=== PATIENT | female | born 1995 | race Caucasian/White ===

== ENCOUNTER 2016-09-28 07:04 | Outpatient (CLI) | payer OTHER ==
[2016-09-28 07:47] LABS: APPEARANCE,URINE CLOUDY; BILIRUBIN,URINE NEGATIVE (NEGATIVE); GLUCOSE, URINE NEGATIVE (NEGATIVE); KETONES,URINE NEGATIVE (NEGATIVE); LEUKOCYTE ESTERASE,URINE LARGE (NEGATIVE); NITRITE,URINE POSITIVE (NEGATIVE); PROTEIN,URINE 100 mg/dL (NEGATIVE); URINE SPECIFIC GRAVITY 1.019; UROBILINOGEN,URINE NEGATIVE mg/dL (<2.0)
--- NOTE | 2016-09-28 08:00 | L&D Flow Sheet ---
LD Flowsheet Datetime Report Generated by CPN: 09/28/2016 08:00 Datetime: 09/28/2016 07:35 Pain Pain Scale: 3 (Gale Hobbs RN) Pain Presence: Constant (Gale Hobbs RN) Pain Type: Dull (Gale Hobbs RN) Pain Location: Back (Gale Hobbs RN) Pain Goal: 2 (YISSEL Alejo Pain Relief Measures: Comfort Measures (Annotations: heat pack applied to lower back ) (Gale Anjel, RN) Vaginal Exam Vaginal Bleeding: None (Gale Anjel, RN) Maternal Assessment Level of Consciousness: Fully Conscious (Gale Hobbs, RN) DTR's/Clonus: DTRs 1+; No Clonus (Gale Anjel, RN) Headache: Denies (Gale Anjel, RN) Nausea/Vomiting: Denies (Gale Hobbs, RN) Teaching Instructional Method: Verbal; Patient Instructed; Verbalized Understanding (Gale Hobbs, RN) Plan of Care: Plan of Care Discussed (Gale Hobbs, RN) Unit Routine: [place] to Room; Call Glass; Bed; Unit Personnel; Handwashing; Monitoring (Gale Hobbs, RN) Communication LaborFlag: Antepartum (QS system process) Datetime: 09/28/2016 07:30 NBP Sys/Rosario/Mean (mmHg): 134 (QS system process) : 59 (QS system process) : 85 (QS system process) Pulse: 100 (QS system process) Communication LaborFlag: Antepartum (QS system process) Datetime: 09/28/2016 07:26 Vital Signs Stage of : Antepartum (Gale Anjel, RN)
[2016-09-28 08:02] LABS: URINE BARBITURATES SCREEN NEGATIVE; URINE METHADONE SCREEN NEGATIVE; URINE OPIATES LOW NEGATIVE; URINE PHENCYCLIDINE SCREEN NEGATIVE
[2016-09-28] MEDS ORDERED: CEFTRIAXONE 1 GM/D5W RTU 50 ML IV ONE (08:15)
[2016-09-28] MEDS ORDERED: CEFTRIAXONE 1 GM/D5W RTU 1 GM/50 ML RTUPB IV ONE (08:21)
[2016-09-28] MEDS: RINGERS SOLUTION,LACTATED 1,000 ML IV PRN ×2 (08:23→08:58)
--- NOTE | 2016-09-28 08:50 | Non Stress Test Report ---
Non Stress Test Datetime Report Generated by CPN: 09/28/2016 08:50 DEMOGRAPHIC Test Number: 1 EGA NST: 35.6 INDICATION Indication for Study: Ordered by Provider; Other Indication for Study (NST) Other: Back pain MONITORING Monitor Explained: Monitor Explained; Test Explained; Patient Verbalized Understanding Time on Monitor: 09/28/2016 08:16 Time off Monitor: 09/28/2016 08:40 NST Duration: 24 NST INTERVENTIONS NST Interventions: PO Hydration; IV Fluids; Reposition Patient Physician Notified NST: Dr Sultana BABY A: [id number] BABY A Movement : Present Contraction Frequency : None FHR Baseline : 135 Accelerations : 15X15 Decelerations : None Variability : Moderate 6-25bpm NST Review: Meets Criteria for Reactive NST NST Review and Verified By : Dana Olivera RN NST Results: Reactive NST REPORT Report Trigger: Send Report
[2016-09-28] MEDS ORDERED: CEFTRIAXONE 1 GM/D5W RTU 50 ML IV SCH (10:00)
--- NOTE | 2016-09-28 10:45 | L&D Flow Sheet ---
LD Flowsheet Datetime Report Generated by CPN: 09/28/2016 10:45 Datetime: 09/28/2016 10:04 Teaching Instructional Method: Verbal; Written; Patient Instructed; Verbalized Understanding (Gale Hobbs RN) Plan of Care: Plan of Care Discussed (Gale Hobbs RN) Teaching Comments: d/c instructions reviewed, see d/c summary (Gale Hobbs RN) Datetime: 09/28/2016 09:18 Communication Communication: Provider at Bedside (Gale Hobbs RN) Communication Comments: Dr Sultana at bedside. Plan of care discussed. May d/c home, RX for antibiotics given. Will finish 2nd IV bag. (Gale Hobbs RN) Datetime: 09/28/2016 09:10 Comments: Monitors removed (Gale Hobbs, RN) I/O Interventions: Up to BR (Gale Hobbs, RN) Datetime: 09/28/2016 08:57 Patient Care IV/Blood Work: New IV Bag Hung; IV Bag Number @ 2 (Gale Anjel, RN) I/O Interventions: Up to BR (Gale Anjel, RN) Datetime: 09/28/2016 08:41 I/O Interventions: Up to BR (Gale Anjel, RN) Datetime: 09/28/2016 08:30 Uterine Activity Monitor Mode: External; Palpation (Gale Anjel, RN) Frequency (min): 0 (Gale Anjel, RN) Resting Tone (Palpate): Relaxed (Gale Anjel, RN) Assessment A Monitor Mode: External US (Gale Anjel, RN) FHR Baseline Rate : 135 (Gale Anjel, RN) Variability: Moderate 6-25 bpm (Gale Anjel, RN) Accelerations: 15X15 (Gale Anjel, RN) Decelerations: None (Gale Anjel, RN) Datetime: 09/28/2016 08:27 NBP Sys/Rosario/Mean (mmHg): 117 (QS system process) : 59 (QS system process) : 82 (QS system process) Pulse: 80 (QS system process) Respirations: 16 (Gale Anjel, RN) LaborFlag: Antepartum (QS system process) Datetime: 09/28/2016 08:24 Medications Antibiotics: Other Antibiotic @ Rocephin 1 gram IVPB (Gale Anjel, RN) Datetime: 09/28/2016 08:23 Patient Care IV/Blood Work: IV Started; IV Bolus Started (Gale Anjel, RN) Datetime: 09/28/2016 08:11 I/O Interventions: Up to BR (Gale Anjel, RN) Datetime: 09/28/2016 08:05 Communication Comments: Dr Sultana called. Report including pt complaints, FHR, UC pattern, VS, UA results. Orders received for LR IVF bolus, Rocephin 1gram IVPB now, Urine culture. (Gale Hobbs, RN) Datetime: 09/28/2016 08:00 Uterine Activity Monitor Mode: External; Palpation (Gale Anjel, RN) Frequency (min): 0 (Gale Hobbs, RN) Resting Tone (Palpate): Relaxed (Gale Hobbs, RN) Assessment A Monitor Mode: External US (Gale Anjel, RN) FHR Baseline Rate : 155 (Gale Anjel, RN) Variability: Minimal - Undetectable to <=5 bpm (Gale Anjel, RN) Decelerations: None (Gale Anjel, RN) Datetime: 09/28/2016 07:58 I/O Interventions: Popsicle (Gale Anjel, RN) Datetime: 09/28/2016 07:35 Pain Pain Scale: 3 (Gale Anjle, RN) Pain Presence: Constant (Gale Anjel, RN) Pain Type: Dull (Gale Anjel, RN) Pain Location: Back (Gale Anjel, RN) Pain Goal: 2 (Gale Anjel, RN) Pain Relief Measures: Comfort Measures (Annotations: heat pack applied to lower back ) (Gale Anjel, RN) Vaginal Exam Vaginal Bleeding: None (Gale Anjel, RN) Maternal Assessment Level of Consciousness: Fully Conscious (Gale Anjel, RN) DTR's/Clonus: DTRs 1+; No Clonus (Gale Anjel, RN) Headache: Denies (Gale Anjel, RN) Nausea/Vomiting: Denies (Gale Anjel, RN) Teaching Instructional Method: Verbal; Patient Instructed; Verbalized Understanding (Gale Hobbs RN) Plan of Care: Plan of Care Discussed (Gale Hobbs RN) Unit Routine: [place] to Room; Call Glass; Bed; Unit Personnel; Handwashing; Monitoring (Gale Hobbs RN) LaborFlag: Antepartum (QS system process) Datetime: 09/28/2016 07:30 NBP Sys/Rosario/Mean (mmHg): 134 (QS system process) : 59 (QS system process) : 85 (QS system process) Pulse: 100 (QS system process) Respirations: 18 (Gale Hobbs RN) Temperature (F): 98.3 (Gale Hobbs RN) Temperature (C): 36.8 (QS system process) Temperature Route: Oral (Gale Hobbs RN) LaborFlag: Antepartum (QS system process) Datetime: 09/28/2016 07:26 Vital Signs Stage of : Antepartum (Gale Anjel, RN)
--- NOTE | 2016-09-28 10:45 | L&D General Admission ---
General Admit Datetime Report Generated by CPN: 09/28/2016 10:45 INFORMATION Patient Age: 21 (09/03/2016 08:58:QS system process) EDC: 10/27/2016 00:00 (09/28/2016 07:07:Gale Hobbs RN) EDC per Ultrasound: 10/27/2016 00:00 (09/28/2016 07:07:Gale Hobbs RN) : 2 (09/28/2016 07:07:Gale Hobbs RN) Para: 1 (09/28/2016 07:07:Gale Hobbs RN) Term: 1 (09/28/2016 07:07:Gale Hobbs RN) : 0 (09/28/2016 07:07:Gale Hobbs RN) Spontaneous Abortions: 0 (09/28/2016 07:07:Gale Hobbs RN) Induced Abortions: 0 (09/28/2016 07:07:Gale Hobbs RN) Livin (09/28/2016 07:07:Gale Hobbs RN) Cesareans: 0 (09/28/2016 07:07:Gale Hobbs RN) VBACs: 0 (09/28/2016 07:07:Gale Hobbs RN) Ectopic: 0 (09/28/2016 07:07:Gale Hobbs RN) Multiple Births: 0 (09/28/2016 07:07:Gale Hobbs RN) Baby, Number in Womb: 1 (09/28/2016 07:07:Gale Hobbs RN) CARE [employer] Program Director: [facility] (09/28/2016 07:07:Gale Hobbs RN) Month of 1st Visit: 02/2016 (09/28/2016 07:07:Gale Hobbs RN) Adequate Care: Yes (09/28/2016 07:07:Gale Hobbs RN) Prepregnancy Weight (lb): 132 (09/28/2016 07:07:Gale Hobbs RN) Prepregnancy Weight (kg): 60.0 (09/28/2016 07:07:QS system process) Height (in): 62 (09/28/2016 08:18:QS system process) Height (in): 62 (09/28/2016 08:17:QS system process) Height (in): 62 (09/28/2016 07:23:QS system process) ALLERGIES Medication Allergy: No (09/28/2016 07:07:Gale Hobbs RN) Medication Allergies: No Known Allergies (09/28/2016) (09/28/2016 07:22:QS system process) Latex Allergy: No Latex Allergies (09/28/2016 07:07:Gale Hobbs RN) Food Allergies: None (09/28/2016 07:07:Gale Hobbs RN) Environmental Allergies: None (09/28/2016 07:07:Gale Hobbs RN) COMMUNICATION Primary Language: Guamanian (09/28/2016 07:07:Gale Hobbs RN) Medical Tx Preferred Language: Guamanian (09/28/2016 07:07:Gale Hobbs RN) Communication Barrier(s): None (09/28/2016 07:07:Gale Hobbs RN) DEMOGRAPHICS Address: [address] [place] [id number] (09/03/2016 08:58:QS system process) Zipcode: [address] (09/03/2016 08:58:QS system process) Home (09/03/2016 08:58:QS system process) SSN: [id number] (09/03/2016 08:58:QS system process) Next of Kin Name: ZARIA LOVELESS (09/03/2016 08:58:QS system process) Next of Kin (09/03/2016 08:58:QS system process) Next of Kin Relationship: SPO (09/03/2016 08:58:QS system process) Date of : 1995 (09/03/2016 08:58:QS system process) Marital Status: (09/03/2016 08:58:QS system process) Sex: Female (09/03/2016 08:58:QS system process) Race: (09/03/2016 08:58:QS system process) Ethnicity: Non- or (09/03/2016 08:58:QS system process) Confucianism: Other (09/03/2016 08:58:QS system process) DRUG AND ALCOHOL USE Alcohol: No (09/28/2016 07:07:Gale Hobbs RN) Cigarettes: Never Smoker. [id number] (09/28/2016 07:07:Gale Hobbs RN) Marijuana: No (09/28/2016 07:07:Gale Hobbs RN) Cocaine: No (09/28/2016 07:07:Gale Hobbs RN) Other Illicit Drugs: No (09/28/2016 07:07:Gale Hobbs RN) VACCINE HISTORY Influenza Vaccine: Yes (09/28/2016 07:07:Gale Hobbs RN) Influenza Date: 05/08/2016 (09/28/2016 07:07:Gale Hobbs RN) Pneumococcal Vaccine: No (09/28/2016 07:07:Gale Hobbs RN) Tetanus Vaccine: No (09/28/2016 07:07:Gale Hobbs RN) Tdap Vaccine: Yes (09/28/2016 07:07:Gale Hobbs RN) Tdap Date: 08/06/2016 (09/28/2016 07:07:Gale Hobbs RN) Hepatitis B Vaccine: Yes (09/28/2016 07:07:Gale Hobbs RN) LABS Blood Type: O Negative (09/28/2016 07:07:Gale Hobbs RN) Antibody Screen: Negative (09/28/2016 07:07:Gale Hobbs RN) Rho(G) this : Yes (09/28/2016 07:07:Gale Hobbs RN) Date Rho(G) Given: 08/06/2016 (09/28/2016 07:07:Gale Hobbs RN) Group Beta Strep: Negative (09/28/2016 07:07:Gale Hobbs RN) Gonorrhea: Negative (09/28/2016 07:07:Gale Hobbs RN) Chlamydia: Negative (09/28/2016 07:07:Gale Hobbs RN) RPR/VDRL: Nonreactive (09/28/2016 07:07:Gale Hobbs RN) HIV Exposure Test: Negative (09/28/2016 07:07:Gale Hobbs RN) Hepatitis B: Negative (09/28/2016 07:07:Gale Hobbs RN) Rubella: Immune (09/28/2016 07:07:Gale Hobbs RN) OB/PREVIOUS HISTORY Previous Procedures: Ultrasound (09/28/2016 07:07:Gale Hobbs RN) Current Procedures: Ultrasound (09/28/2016 07:07:Gale Hobbs RN) History of Previous : No (09/28/2016 07:07:Gale Hobbs RN) History of Gestational Diabetes: No (09/28/2016 07:07:Gale Hobbs RN) History of PIH: No (09/28/2016 07:07:Gale Hobbs RN) History of Incompetent Cervix: No (09/28/2016 07:07:Gale Hobbs RN) History of Placenta Previa/Abrup: No (09/28/2016 07:07:Gale Hobbs RN) History of Macrosomia: No (09/28/2016 07:07:Gale Hobbs RN) History of IUGR: No (09/28/2016 07:07:Gale Hobbs RN) History of Hemorrhage: No (09/28/2016 07:07:Gale Hobbs RN) History of Loss/Stillborn: No (09/28/2016 07:07:Gale Hobbs RN) History of : No (09/28/2016 07:07:Gale Hobbs RN) History of D (Rh) Sensitization: No (09/28/2016 07:07:Gale Hobbs RN) History Recurrent Loss/Stillborn: No (09/28/2016 07:07:Gale Hobbs RN) History Depression/PP Depression: No (09/28/2016 07:07:Gale Hobbs RN) History of Uterine Anomaly/LIVIA: No (09/28/2016 07:07:Gale Hobbs RN) History of Infertility: No (09/28/2016 07:07:Gale Hobbs RN) History of ART Treatment: No (09/28/2016 07:07:Gale Hobbs RN) History of LIVIA: No (09/28/2016 07:07:Gale Hobbs RN) Comments Obstetrical History: G1 - 03/2015 - at 38wks, 7lbs G2 - current - close interval , anemia (09/28/2016 07:07:Gale Hobbs RN) MEDICAL HISTORY Med Hx Diabetes: No (09/28/2016 07:07:Gale Hobbs RN) Med Hx Hypertension: No (09/28/2016 07:07:Gale Hobbs RN) Med Hx Heart Disease: No (09/28/2016 07:07:Gale Hobbs RN) Med Hx Autoimmune Disorder: No (09/28/2016 07:07:Gale Hobbs RN) Med Hx Kidney Disease/UTI: No (09/28/2016 07:07:Gale Hobbs RN) Med Hx Neurologic/Epilepsy: No (09/28/2016 07:07:Gale Hobbs RN) Med Hx Psychiatric Disorders: No (09/28/2016 07:07:Gale Hobbs RN) Med Hx Hepatitis/Liver Disease: No (09/28/2016 07:07:Gale Hobbs RN) Med Hx Varicosities/Phlebitis: No (09/28/2016 07:07:Gale Hobbs RN) Med Hx Thyroid Dysfunction: No (09/28/2016 07:07:Gale Hobbs RN) Med Hx Trauma/Violence: No (09/28/2016 07:07:Gale Hobbs RN) Med Hx Blood Transfusion: No (09/28/2016 07:07:Gale Hobbs RN) Med Hx Pulmonary (Asthma,TB): No (09/28/2016 07:07:Gale Hobbs RN) Med Hx Breast: No (09/28/2016 07:07:Gale Hobbs RN) Med Hx EMAIL [employer]ODUCTION SPECIALIST Surgery: No (09/28/2016 07:07:Gale Hobbs RN) Med Hx Hospitalization/Surgery: Yes (09/28/2016 07:07:Gale Hobbs RN) Med Hx Anesthetic Complications: No (09/28/2016 07:07:Gale Hobbs RN) Med Hx Abnormal Pap Smear: No (09/28/2016 07:07:Gale Hobbs RN) Other Medical Diseases: No (09/28/2016 07:07:Gale Hobbs RN) Med Hx Significant Family Hx: No (09/28/2016 07:07:Gale Hobbs RN) Details of Med/Surg Hx: Hosptalized for childbirth (09/28/2016 07:07:Gale Hobbs RN) INFECTIOUS HISTORY Inf Hx Gonorrhea: No (09/28/2016 07:07:Gale Hobbs RN) Inf Hx Chlamydia: No (09/28/2016 07:07:Gale Hobbs RN) Inf Hx Syphilis: No (09/28/2016 07:07:Gale Hobbs RN) Inf Hx HIV/AIDS: No (09/28/2016 07:07:Gale Hobbs RN) Inf Hx Human Papilloma Virus: No (09/28/2016 07:07:Gale Hobbs RN) Inf Hx Pt/Partner Genital Herpes: No (09/28/2016 07:07:Gale Hobbs RN) Inf Hx Tuberculosis/Exposure: No (09/28/2016 07:07:Gale Hobbs RN) Inf Hx Hepatitis B,C: No (09/28/2016 07:07:Gale Hobbs RN) Inf Hx Rash or Viral Illness: No (09/28/2016 07:07:Gale Hobbs RN) GENETIC HISTORY Gen Hx Age >=35 at TOMMY: No (09/28/2016 07:07:Gale Hobbs RN) Gen Hx Thalassemia: No (09/28/2016 07:07:Gale Hobbs RN) Gen Hx Congenital Heart Defect: No (09/28/2016 07:07:Gale Hobbs RN) Gen Hx Neural Tube Defect: No (09/28/2016 07:07:Gale Hobbs RN) Gen Hx Down's Syndrome: No (09/28/2016 07:07:Gale Hobbs RN) Gen Hx [place]-Sachs: No (09/28/2016 07:07:Gale Hobbs RN) Gen Hx Shaista: No (09/28/2016 07:07:Gale Hobbs RN) Gen Hx Familial Dysautonomia: No (09/28/2016 07:07:Gale Hobbs RN) Gen Hx Sickle Cell Disease/Trait: No (09/28/2016 07:07:Gale Hobbs RN) Gen Hx Hemophilia/Blood Disorder: No (09/28/2016 07:07:Gale Hobbs RN) Gen Hx Muscular Dystrophy: No (09/28/2016 07:07:Gale Hobbs RN) Gen Hx Cystic Fibrosis: No (09/28/2016 07:07:Gale oHbbs RN) Gen Hx Huntingtons Chorea: No (09/28/2016 07:07:Gale Hobbs RN) Gen Hx Mental Retardation/Autism: No (09/28/2016 07:07:Gale Hobbs RN) Gen Hx Tested for Fragile X: No (09/28/2016 07:07:Gale Hobbs RN) Gen Hx Other Inher/Chromosomal: No (09/28/2016 07:07:Gale Hobbs RN) Gen Hx Maternal Metabolic DO: No (09/28/2016 07:07:Gale Hobbs RN) Gen Hx Pt Father or FOB Defect: No (09/28/2016 07:07:Gale Hobbs RN) Gen Hx Other Genetic History: No (09/28/2016 07:07:Gale Hobbs RN) Gen Hx Drugs/Meds since LMP: No (09/28/2016 07:07:Gale Hobbs RN)
--- NOTE | 2016-09-28 10:45 | L&D Admission Assessment ---
LD ADM ASMT Datetime Report Generated by CPN: 09/28/2016 10:45 PATIENT ASSESSMENT Assessment Type: Triage (09/28/2016 07:35:Gale Hobbs RN) WEIGHT Weight (lb): 167 (09/28/2016 08:18:QS system process) Weight (lb): 167 (09/28/2016 08:17:QS system process) Weight (lb): 167 (09/28/2016 07:23:QS system process) Weight (kg): 75.9 (09/28/2016 08:18:QS system process) Weight (kg): 75.9 (09/28/2016 08:17:QS system process) Weight (kg): 75.9 (09/28/2016 07:23:QS system process) Total Wt Gain (lb): 35 (09/28/2016 08:18:QS system process) Total Wt Gain (lb): 35 (09/28/2016 08:17:QS system process) Total Wt Gain (lb): 35 (09/28/2016 07:23:QS system process) Wt Gain (kg): 16.0 (09/28/2016 08:18:QS system process) Wt Gain (kg): 16.0 (09/28/2016 08:17:QS system process) Wt Gain (kg): 16.0 (09/28/2016 07:23:QS system process) BMI: 30.5 (09/28/2016 08:18:QS system process) BMI: 30.5 (09/28/2016 08:17:QS system process) PAIN Pain Scale: 3 (09/28/2016 07:35:Gale Hobbs RN) Pain Presence: Constant (09/28/2016 07:35:Gale Hobbs RN) Pain Type: Dull (09/28/2016 07:35:Gale Hobbs RN) Pain Location: Back (09/28/2016 07:35:Gale Hobbs RN) Pain Goal: 2 (09/28/2016 07:35:Gale Hobbs RN) Pain Related to Contraction: No (09/28/2016 07:35:Gale Hobbs RN) CONTRACTIONS Frequency (min): 0 (09/28/2016 08:30:Gale Hobbs RN) Frequency (min): 0 (09/28/2016 08:00:Gale Hobbs RN) Resting Tone [place]: Relaxed (09/28/2016 08:30:Gale Hobbs RN) Resting Tone [place]: Relaxed (09/28/2016 08:00:Gale Hobbs RN) NEURO Level of Consciousness: Fully Conscious (09/28/2016 07:35:Gale Hobbs RN) DTR's/Clonus: DTRs 1+; No Clonus (09/28/2016 07:35:Gale Hobbs RN) Headache: Denies (09/28/2016 07:35:Gale Hobbs RN) Dizziness: No (09/28/2016 07:35:Gale Hobbs RN) Blurred Vision: No (09/28/2016 07:35:Gale Hobbs RN) CARDIOVASCULAR Heart Rhythm: Regular (09/28/2016 07:35:Gale Hobbs RN) Nailbeds: [place] (09/28/2016 07:35:Gale Hobbs RN) Capillary Refill: Less than 3 Seconds (09/28/2016 07:35:Gale Hobbs RN) Lower Extremities Edema: None (09/28/2016 07:35:Gale Hobbs RN) Lower Extremities Edema Degree: None (09/28/2016 07:35:Gale Hobbs RN) Upper Extremities Edema: None (09/28/2016 07:35:Gale Hobbs RN) Upper Extremities Edema Degree: None (09/28/2016 07:35:Gale Hobbs RN) Facial Edema: None (09/28/2016 07:35:Gale Hobbs RN) RESPIRATORY Respiratory Effort: Unlabored; Regular Rhythm; Equal Expansion (09/28/2016 07:35:Gale Hobbs RN) Cough Productivity: None (09/28/2016 07:35:Gale Hobbs RN) GASTROINTESTINAL Nausea/Vomiting: Denies (09/28/2016 07:35:Gale Hobbs RN) Bowel Sounds: Normoactive (09/28/2016 07:35:Gale Hobbs RN) Bowel Patterns: Loose Stool (Annotations: frequent ) (09/28/2016 07:35:Gale Hobbs RN) Hemorrhoids: None (09/28/2016 07:35:Gale Hobbs RN) Diet Type: Regular diet (09/28/2016 07:35:Gale Hobbs RN) Last Meal: 09/27/2016 20:00 (09/28/2016 07:35:Gale Hobbs RN) GENITOURINARY Bladder: Nondistended (09/28/2016 07:35:Gale Hobbs RN) Frequency of Urination: Yes (09/28/2016 07:35:Gale Hobbs RN) Urination Burning: No (09/28/2016 07:35:Gale Hobbs RN) Vaginal Bleeding: None (09/28/2016 07:35:Gale Hobbs RN) Vaginal Discharge Amount: Moderate (09/28/2016 07:35:Gale Hobbs RN) Vaginal Discharge Color: White (09/28/2016 07:35:Gale Hobbs RN) Vaginal Discharge Odor: Non-Odorous (09/28/2016 07:35:Gale Hobbs RN) Vaginal Discharge Character: Thin (09/28/2016 07:35:Gale Hobbs RN) INTEGUMENTARY Skin Color: Normal for Race (09/28/2016 07:35:Gale Hobbs RN) Skin Temperature: Warm (09/28/2016 07:35:Gale Hobbs RN) Skin Moisture: Dry (09/28/2016 07:35:Gale Hobbs RN) SAFETY Call Glass Within Reach: Yes (09/28/2016 07:35:Gale Hobbs RN) Side Rails Up: Yes (09/28/2016 07:35:Gale Hobbs RN) Bed Wheels Locked: Yes (09/28/2016 07:35:Gale Hobbs RN) Arm Bands Present: Yes (09/28/2016 07:35:Gale Hobbs RN) Isolation: [place] (09/28/2016 07:35:Gale Hobbs RN) BABY A FHR Baseline Rate (bpm) Baby A: 135 (09/28/2016 08:30:Gale Hobbs RN) FHR Baseline Rate (bpm) Baby A: 155 (09/28/2016 08:00:Gale Hobbs RN) Variability Baby A: Moderate 6-25 bpm (09/28/2016 08:30:Gale Hobbs RN) Variability Baby A: Minimal - Undetectable to <=5 bpm (09/28/2016 08:00:Gale Hobbs RN) Accelerations Baby A: 15X15 (09/28/2016 08:30:Gale Hobbs RN) Decelerations Baby A: None (09/28/2016 08:30:Gale Hobbs RN) Decelerations Baby A: None (09/28/2016 08:00:Gale Hobbs RN)
--- NOTE | 2016-09-28 10:45 | L&D Current Admission ---
Current Admit Datetime Report Generated by CPN: 09/28/2016 10:45 ADMISSION INFORMATION Chief Complaint: Back Pain; Other (09/28/2016 07:35:Gale Hobbs RN)
--- NOTE | 2016-09-28 10:45 | Antepartum Discharge Summary ---
Antepartum DC Datetime Report Generated by CPN: 09/28/2016 10:45 DIET/ACTIVITY/RESTRICTIONS Diet: Regular (09/28/2016 09:40:Gale Hobbs RN) Activity: Normal Activity (09/28/2016 09:40:Gale Hobbs RN) TEACHING/INSTRUCTIONS/REFERRALS Instructions Given To: Patient (09/28/2016 09:40:Gale Hobbs RN) Instructions Understood: Patient Verbalized Understanding (09/28/2016 09:40:Gale Hobbs RN) Referrals: None (09/28/2016 09:40:Gale Hobbs RN) Educational Materials- Other: UTI in Keflex med sheet Kick counts (09/28/2016 09:40:Gale Hobbs RN) DISCHARGE INFORMATION Discharged AMA: No (09/28/2016 09:40:Gale Hobbs RN) Discharge Date/Time: 09/28/2016 10:15 (09/28/2016 09:40:Gale Hobbs RN) Discharged To: Home (09/28/2016 09:40:Gale Hobbs RN) Discharge Provider Name: Dr Sultana (09/28/2016 09:40:Gale Hobbs RN) Accompanied By: Friend (09/28/2016 09:40:Gale Hobbs RN) Discharge Method: Ambulatory (09/28/2016 09:40:Gale Hobbs RN) Condition: Stable (09/28/2016 09:40:Gale Hobbs RN) FOLLOW UP INFORMATION Follow Up With: [facility] (09/28/2016 09:40:Gale Hobbs RN) Follow Up On: As Scheduled (09/28/2016 09:40:Gale Hobbs RN) Follow Up Phone Number: [facility] - (09/28/2016 09:40:Gale Hobbs RN) Comments: RX for Keflex given, PO hydration, s/s to report to provider (09/28/2016 09:40:Gale Hobbs RN)
--- NOTE | 2016-09-28 10:45 | L&D Discharge Summary ---
OB Discharge Summary Datetime Report Generated by CPN: 09/28/2016 10:45 DISCHARGE DIAGNOSIS Diagnosis/Symptoms: UTI Number of Babies in Womb: 1 Parity: 1 DIET/ACTIVITY/RESTRICTIONS Diet: Regular Activity: Normal Activity TEACHING/INSTRUCTIONS/REFERRALS Instructions Given To: Patient Instructions Understood: Patient Verbalized Understanding Referrals: None Educational Materials- Other: UTI in Keflex med sheet Kick counts DISCHARGE INFORMATION Discharged AMA: No Discharge Date/Time: 09/28/2016 10:15 Discharged To: Home Discharge Provider Name: Dr Sultana Accompanied By: Friend Discharge Method: Ambulatory Condition: Stable FOLLOW UP INFORMATION Follow Up With: [facility] Follow Up On: As Scheduled Follow Up Phone Number: [facility] - Comments: RX for Keflex given, PO hydration, s/s to report to provider
== END 2016-09-28 10:15 | disposition home or self-care (01) ==
LOC: LC 07:04
PROVIDERS: ATTEND Obstetrics & Gynecology
PROC: 4A1HXCZ Monitoring of Products of Conception, Cardiac Rate, External Approach (ICD-10-PCS; principal; 2016-09-28)
DX: O23.43 Unspecified infection of urinary tract in pregnancy, third trimester (principal); Z3A.36 36 weeks gestation of pregnancy
CPT/HCPCS: 59025; 87086; 81001; 80307; J0696

== ENCOUNTER 2016-10-27 20:46 | Outpatient (CLI) | payer OTHER ==
[2016-10-27 21:20] LABS: APPEARANCE,URINE SLIGHTLY-CLOUDY; BILIRUBIN,URINE NEGATIVE (NEGATIVE); GLUCOSE, URINE 50 mg/dL (NEGATIVE); KETONES,URINE TRACE mg/dL (NEGATIVE); LEUKOCYTE ESTERASE,URINE NEGATIVE (NEGATIVE); NITRITE,URINE NEGATIVE (NEGATIVE); PROTEIN,URINE NEGATIVE (NEGATIVE); URINE SPECIFIC GRAVITY 1.027; UROBILINOGEN,URINE NEGATIVE mg/dL (<2.0)
[2016-10-27 21:59] LABS: URINE BARBITURATES SCREEN NEGATIVE; URINE METHADONE SCREEN NEGATIVE; URINE OPIATES LOW NEGATIVE; URINE PHENCYCLIDINE SCREEN NEGATIVE
== END 2016-10-27 22:54 | disposition home or self-care (01) ==
LOC: LC 20:46
PROVIDERS: ATTEND Obstetrics & Gynecology
PROC: 4A1HXCZ Monitoring of Products of Conception, Cardiac Rate, External Approach (ICD-10-PCS; principal; 2016-10-27)
DX: O48.0 Post-term pregnancy (principal); Z3A.40 40 weeks gestation of pregnancy
CPT/HCPCS: 59025; 80307; 81005

== ENCOUNTER 2016-10-28 01:43 | Inpatient (IN) | payer OTHER ==
[2016-10-28 02:37] LABS: ABSOLUTE EOSINOPHILS # (AUTO) 0.1 10^3/uL (0.0-0.6); ABSOLUTE LYMPHOCYTES (AUTO) 2.5 10^3/uL (0.5-4.7); ABSOLUTE NEUT (AUTO) 12.7 10^3/uL (1.7-8.2); BASOPHILS % (AUTO) 0.2 % (0-2); EOSINOPHILS % (AUTO) 0.4 % (0-6); HEMATOCRIT 33.3 % (36.0-47.0); HEMOGLOBIN 11.4 g/dL (12.0-15.5); HGB HCT DIFFERENCE 0.9; LYMPHOCYTES % (AUTO) 15.4 % (13-45); MEAN CORPUSCULAR HEMOGLOBIN 29.3 pg (27.0-33.4); MEAN CORPUSCULAR HGB CONC 34.3 g/dL (32.0-36.0); MEAN CORPUSCULAR VOLUME 85 fl (80-97); MONOCYTES % (AUTO) 6.3 % (3-13); SEGMENTED NEUTROPHILS % (AUTO) 77.7 % (42-78); WHITE BLOOD COUNT 16.3 10^3/uL (4.0-10.5)
[2016-10-28] MEDS ORDERED: OXYTOCIN/NORMAL SALINE 20 UNIT/1,000 ML RTUINJ ONE (02:50)
[2016-10-28] MEDS ORDERED: MISOPROSTOL 0.2 MG TABLET ONE (02:50)
[2016-10-28] MEDS ORDERED: FENTANYL/BUPIVACAINE/NS/PF 200 MCG/100 ML RTUINJ EPI ONE (02:50)
[2016-10-28] MEDS ORDERED: EPHEDRINE SULFATE INJ 50 MG/1 ML AMPULE ONE (02:50)
[2016-10-28] MEDS ORDERED: BUPIVACAINE HCL 0.25 % INJ/PF (2.5 MG/1 ML) 30 ML VIAL ONE (02:50)
[2016-10-28] MEDS ORDERED: LIDOCAINE 1% INJ-PF (10 MG/ML) 30 ML SDV ONE (02:50)
[2016-10-28] MEDS ORDERED: MAG HYDROX/AL HYDROX/SIMETH SUSP 30 ML UDCUP ONE (04:46)
[2016-10-28] MEDS: RINGERS SOLUTION,LACTATED 1,000 ML IV PRN ×3 (04:52→04:54)
[2016-10-28] MEDS ORDERED: PROMETHAZINE HCL 25 MG TABLET PO PRN (06:41)
[2016-10-28] MEDS ORDERED: BENZOCAINE/MENTHOL AEROSOL SPRAY 56 ML TOP PRN (06:41)
[2016-10-28] MEDS ORDERED: MEASLES,MUMPS&RUBELLA VACC/PF 0.5 ML VIAL SUBCUT PRN (06:41)
[2016-10-28] MEDS ORDERED: DIBUCAINE 1% OINTMENT 28 GM TP PRN (06:41)
[2016-10-28] MEDS ORDERED: PROMETHAZINE HCL 25 MG SUPP.RECT PR PRN (06:41)
[2016-10-28] MEDS ORDERED: PSEUDOEPHEDRINE HCL 30 MG TABLET PO PRN (06:41)
[2016-10-28] MEDS ORDERED: ZOLPIDEM TARTRATE 5 MG TABLET PO PRN (06:41)
[2016-10-28] MEDS ORDERED: PROMETHAZINE HCL INJ 25 MG/1 ML VIAL IV PRN (06:41)
[2016-10-28] MEDS ORDERED: OXYTOCIN/NORMAL SALINE 20 UNIT/1,000 ML RTUINJ IV PRN (06:41)
[2016-10-28] MEDS ORDERED: DIPHENHYDRAMINE HCL 25 MG CAPSULE PO PRN (06:41)
[2016-10-28] MEDS ORDERED: NA PHOS,M-B/NA PHOS,DI-BA (ADULT) 133 ML ENEMA PR PRN (06:41)
[2016-10-28] MEDS ORDERED: DIPH/PERTUSS(ACELL)/TETANUS VAC/PF 0.5 ML SYR (>=10YO) IM PRN (06:41)
[2016-10-28] MEDS ORDERED: ACETAMINOPHEN 650 MG SUPP.RECT PR PRN (06:41)
[2016-10-28] MEDS ORDERED: ACETAMINOPHEN WITH CODEINE #3 TABLET PO PRN ×2 (06:41)
[2016-10-28] MEDS ORDERED: GLYCERIN/WITCH HAZEL LEAF 1 EACH MED..PAD TP PRN (06:41)
[2016-10-28] MEDS ORDERED: MAGNESIUM HYDROXIDE SUSP 30 ML UDCUP PO PRN (06:41)
[2016-10-28] MEDS: SENNOSIDES/DOCUSATE 8.6-50 MG 1 EACH TABLET PO SCH (10:26)
[2016-10-28] MEDS: DOCUSATE SODIUM 100 MG CAPSULE PO SCH ×2 (10:26→18:54)
[2016-10-28] MEDS: PRENATAL VITAMIN W-O CA NO5/FE FUMARATE/FA CAPSULE PO SCH (10:27)
[2016-10-28] MEDS: FERROUS SULFATE 325 MG TABLET PO SCH ×2 (10:27→18:54)
[2016-10-28] MEDS: FAMOTIDINE 20 MG TABLET PO SCH ×2 (10:27→21:04)
[2016-10-28] MEDS: IBUPROFEN 800 MG TABLET PO SCH ×2 (13:17→21:04)
[2016-10-29] MEDS: IBUPROFEN 800 MG TABLET PO SCH ×3 (06:55→22:00)
--- NOTE | 2016-10-29 09:16 | Delivery Summary ---
Del Sum A-C Datetime Report Generated by CPN: 10/29/2016 09:16 DELIVERY PERSONNEL DELIVERY PERSONNEL: [id number] Delivery Doctor:: Doc Sultana MD Labor and Delivery Nurse:: Birgit Gallardo RN Labor and Delivery Nurse:: Rosana Waggoner RN Floor Mechanic/BROOMMAKING SUPERVISOR: Joellen Lares, ST MATERNAL INFORMATION Delivery Anesthesia: Epidural Medications After Delivery: Pitocin Bolus-Please Comment Meds After Delivery Comment: Pitocin 20 units/1000 mL bolus following placenta Maternal Complications: None LABOR SUMMARY EDC: 10/27/2016 00:00 No. Babies in Womb: 1 Attempted: No Labor Anesthesia: Epidural LABOR INFORMATION Reason for Induction: Not Applicable Onset of Labor: 10/28/2016 01:51 Complete Dilatation: 10/28/2016 05:56 Oxytocin: N/A Group B Beta Strep: Negative Antibiotics # of Doses: 0 Antibiotics Time of Last Dose: N/A Steroids Given: None Reason Steroids Not Administered: Not Applicable MEMBRANES Membranes Rupture Method: Artificial Rupture of Membranes: 10/28/2016 05:54 Length of Rupture (hr): 0.37 Amniotic Fluid Color: Clear Amniotic Fluid Amount: Scant Amniotic Fluid Odor: Normal STAGES OF LABOR Stage 1 hr: 4 Stage 1 min: 5 Stage 2 hr: 0 Stage 2 min: 20 Stage 3 hr: 0 Stage 3 min: 5 Total Time in Labor hr: 4 Total Time in Labor min: 30 VAGINAL DELIVERY Episiotomy: None Laceration Extension: N/A Laceration Type: Periurethral Laceration Repair: Yes Laceration Repair Note: repair of small periurethral with one 3-0 chromic suture Sponge Count Correct: N/A Sharps Count Correct: N/A CSECTION DELIVERY Primary Indication: N/A Secondary Indication: N/A CSection Incidence: N/A Labor: N/A Elective: N/A CSection Incision: N/A BABY A INFORMATION Delivery Date/Time: 10/28/2016 06:16 Method of Delivery: Vaginal Born in Route : No : N/A Forceps: N/A Vacuum Extraction: N/A Shoulder Dystocia : No PRESENTATION/POSITION BABY A Presentation: Cephalic Cephalic Presentation: Vertex Vertex Position: Right Occipital Anterior Breech Presentation: N/A PLACENTA INFORMATION BABY A Placenta Delivery Time : 10/28/2016 06:21 Placenta Method of Delivery: Spontaneous Placenta Status: Delivered SCORES BABY A Heart Rate 1 min: >100 bpm Resp Effort 1 min: Good Cry Reflex Irritability 1 min: Cough or Sneeze or Pulls Away Muscle Tone 1 min: Active Motion Color 1 min: Body [place], Extremities Blue SCORE 1 MIN: 9 Heart Rate 5 min: >100 bpm Resp Effort 5 min: Good Cry Reflex Irritability 5 min: Cough or Sneeze or Pulls Away Muscle Tone 5 min: Active Motion Color 5 min: Body [place], Extremities Blue SCORE 5 MIN: 9 INFANT INFORMATION BABY A Gestational Age at Delivery: 40.1 Gestational Status: Full Term- 39- 40.6 Weeks Infant Outcome : Liveborn Condition : Stable Sex: Male IDENTIFICATION BABY A Verification Date/Time: 10/28/2016 06:34 ID Band Number: [id number] Mother's Name Verified: Yes RN Verifying : Keyon Gallardo, RN _ Renetta Luna, RN CORD INFORMATION BABY A No. Cord Vessels: 3 Nuchal Cord : N/A Cord Blood Taken: Yes-For Eval (Mom's Blood Type - or O+) Infant Suction: Mouth; Nose ASSESSMENT BABY A Complications: Other Infant Complications- Other: terminal mec Physical Findings at Delivery: Within Normal Limits Respirations: Appears Normal Skin to Skin: Yes Residential Construction Instructor/ALS Called : No Infant Care By: Angelica Waggoner RN Transferred To: Remains with Mother SIGNATURES Signature: with User ID: [email or web address]
--- NOTE | 2016-10-29 09:18 | Admission Physical ---
Datetime Report Generated by CPN: 10/29/2016 09:18 CURRENT ADMISSION Chief Complaint: Uterine Contractions Indication for Induction: Not Applicable Admit Plan: Admit to Unit; Initiate Labor Protocol ALLERGIES Medication Allergies: No Medication Allergies: No Known Allergies (09/28/2016) Latex: No Latex Allergies Food Allergies: None Environmental Allergies: None OBSTETRICAL HISTORY EDC: 10/27/2016 00:00 : 2 Para: 1 Term: 1 : 0 SAB: 0 IAB: 0 Ectopic: 0 Livin Cesareans: 0 VBACs: 0 Multiple Births: 0 Gestational Diabetes: No Rh Sensitization: No Incompetent Cervix: No LIVIA: No Infertility: No ART Treatment: No Uterine Anomaly: No IUGR: No Hx Previous C/S: No Macrosomia: No Hx Loss/Stillborn: No PIH: No Hx : No Placenta Previa/Abruption: No Depression/PP Depression: No PTL/PROM: No Post Hemorrhage: No Current Procedures: Ultrasound Obstetrical History Comments: G1 - 03/2015 - at 38wks, 7lbs G2 - current - close interval , anemia SEE RECORDS Alcohol: No Marijuana : No Cocaine: No Other Illicit Drugs: No Cigarettes: Never Smoker. 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 Heart Disease: No Hosp/Surgery: Yes Autoimmune Disorder: No Anesthetic Complications: No Kidney Disease: No Abnormal Pap Smear: No Neuro/Epilepsy: No Psychiatric Disorders: No Other Medical Diseases: No Hepatitis/Liver Disease: No Significant Family History: No Varicosities/Phlebitis: No Trauma/Violence : No Thyroid Dysfunction: No Medical History Comments: Hosptalized for childbirth INFECTIOUS HISTORY Gonorrhea: No Genital Herpes: No Chlamydia: No Tuberculosis: No Syphilis: No Hepatitis: No HIV/AIDS Exposure: No Rash or Viral Illness: No HPV: No PHYSICAL EXAM General: Normal HEENT: Normal Neurologic: Normal Thyroid: Normal Heart: Normal Lungs: Normal Breast: Deferred Back: Normal Abdomen: Normal Genitourinary Exam: Normal Extremities: Normal DTRs: Normal Pelvic Type: Adequate Vital Signs: Reviewed FETUS A Admit Comment: Term, Rh neg PLANS FOR LABOR AND DELIVERY Labor and Delivery: None Pain Management: Epidural Feeding Preference: Formula Benefit of Breast Feed Discussed: Yes Circumcision: Yes INFORMED CONSENT Signature: with User ID: [email or web address]
[2016-10-29 09:20] LABS: HEMATOCRIT 30.9 % (36.0-47.0); HEMOGLOBIN 10.5 g/dL (12.0-15.5); HGB HCT DIFFERENCE 0.6; MEAN CORPUSCULAR HEMOGLOBIN 29.4 pg (27.0-33.4); MEAN CORPUSCULAR VOLUME 86 fl (80-97); RED BLOOD COUNT 3.58 10^6/uL (3.72-5.28); RED CELL DISTRIBUTION WIDTH 15.2 % (11.5-14.0); WHITE BLOOD COUNT 11.8 10^3/uL (4.0-10.5)
[2016-10-29] MEDS: FAMOTIDINE 20 MG TABLET PO SCH ×2 (09:26→21:59)
[2016-10-29] MEDS: PRENATAL VITAMIN W-O CA NO5/FE FUMARATE/FA CAPSULE PO SCH (09:26)
[2016-10-29] MEDS: FERROUS SULFATE 325 MG TABLET PO SCH ×2 (09:26→17:09)
[2016-10-29] MEDS: SENNOSIDES/DOCUSATE 8.6-50 MG 1 EACH TABLET PO SCH (09:26)
[2016-10-29] MEDS: DOCUSATE SODIUM 100 MG CAPSULE PO SCH ×2 (09:26→17:09)
--- NOTE | 2016-10-29 10:13 | PDOC PROGRESS REPORT ---
Subjective-OB Subjective: Post Delivery Day: 21 year old. Denies any needs at this time Doing well, OOB in room, no c/o, eating well, scant bleeding Physical Exam (OB) Vital Signs: Temp Pulse Resp BP Pulse Ox 97.9 F 77 14 114/70 99 10/29/16 09:31 10/29/16 09:31 10/29/16 09:31 10/29/16 09:31 10/29/16 09:31 Intake & Output 10/28/16 10/29/16 10/30/16 06:59 06:59 06:59 Weight 80.75 kg - PIH/Pre-Eclampsia Clonus: Negative - Lochia Lochia Amount: Small 10-25 ml Lochia Color: Rubra/Red - Abdomen Description: Soft, Round Hernia Present: No Fundal Description: Firm, Midline Fundal Height: u/u - u/2 Objective-Diagnostic Laboratory: 10/29/16 08:31 10/29/16 10/29/16 08:31 08:31 WBC 11.8 H RBC 3.58 L Hgb 10.5 L Hct 30.9 L MCV 86 MCH 29.4 MCHC 34.0 RDW 15.2 H Plt Count 131 L Blood Type O NEGATIVE Assessment and Plan(PN) - Assessment and Plan (1) Anemia associated with acute blood loss Is this a current diagnosis for this admission?: Yes (2) Delivery normal Is this a current diagnosis for this admission?: Yes - Time Spent with Patient Time with patient: Less than 15 minutes Medications reviewed and adjusted accordingly: Yes - Disposition Anticipated Discharge: Home Within: within 24 hours
[2016-10-30] MEDS: IBUPROFEN 800 MG TABLET PO SCH (05:45)
[2016-10-30 08:58] VITALS: BP 130/61
[2016-10-30] MEDS: FERROUS SULFATE 325 MG TABLET PO SCH (09:38)
[2016-10-30] MEDS: SENNOSIDES/DOCUSATE 8.6-50 MG 1 EACH TABLET PO SCH (09:38)
[2016-10-30] MEDS: DOCUSATE SODIUM 100 MG CAPSULE PO SCH (09:38)
[2016-10-30] MEDS: FAMOTIDINE 20 MG TABLET PO SCH (09:38)
[2016-10-30] MEDS: PRENATAL VITAMIN W-O CA NO5/FE FUMARATE/FA CAPSULE PO SCH (09:39)
--- NOTE | 2016-10-30 10:47 | PDOC DISCHARGE SUMMARY ---
Final Diagnosis Discharge Date: 10/30/16 - Final Diagnosis (1) Anemia associated with acute blood loss Is this a current diagnosis for this admission?: Yes (2) Delivery normal Is this a current diagnosis for this admission?: Yes Discharge Data - Discharge Medication Home Medications: Ferrous Sulfate [Iron] 325 mg PO BID 09/28/16 Pnv with Ca,No.72/Iron/FA [ Plus Tablet] 1 tab PO DAILY 09/28/16 Reason(s) for Admission: Onset of Labor Procedures: None Intrapartum Procedure(s): Spontaneous Vaginal Delivery Complication(s): Laceration-Periurethral - Diagnosis Test Laboratory: Temp Pulse Resp BP Pulse Ox 98.0 F 77 16 112/60 100 10/30/16 08:17 10/30/16 08:17 10/30/16 08:17 10/30/16 08:17 10/30/16 08:17 10/28/16 10/29/16 02:26 08:31 RBC 3.90 3.58 L Hgb 11.4 L 10.5 L Hct 33.3 L 30.9 L - Discharge information/Instructions Discharge Activity: Activity As Tolerated, No Lifting Over 10 Pounds, Pelvic Rest, No tub bath Discharge Diet: Regular Disposition: HOME, SELF-CARE Follow up with: [facility] in: [facility]
--- NOTE | 2016-11-03 23:41 | Admission Physical ---
Datetime Report Generated by CPN: 11/03/2016 23:40 CURRENT ADMISSION Chief Complaint: Uterine Contractions Indication for Induction: Not Applicable Admit Plan: Admit to Unit; Initiate Labor Protocol ALLERGIES Medication Allergies: No Medication Allergies: No Known Allergies (09/28/2016) Latex: No Latex Allergies Food Allergies: None Environmental Allergies: None OBSTETRICAL HISTORY EDC: 10/27/2016 00:00 : 2 Para: 1 Term: 1 : 0 SAB: 0 IAB: 0 Ectopic: 0 Livin Cesareans: 0 VBACs: 0 Multiple Births: 0 Gestational Diabetes: No Rh Sensitization: No Incompetent Cervix: No LIVIA: No Infertility: No ART Treatment: No Uterine Anomaly: No IUGR: No Hx Previous C/S: No Macrosomia: No Hx Loss/Stillborn: No PIH: No Hx : No Placenta Previa/Abruption: No Depression/PP Depression: No PTL/PROM: No Post Hemorrhage: No Current Procedures: Ultrasound Obstetrical History Comments: G1 - 03/2015 - at 38wks, 7lbs G2 - current - close interval , anemia SEE RECORDS Alcohol: No Marijuana : No Cocaine: No Other Illicit Drugs: No Cigarettes: Never Smoker. 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 Heart Disease: No Hosp/Surgery: Yes Autoimmune Disorder: No Anesthetic Complications: No Kidney Disease: No Abnormal Pap Smear: No Neuro/Epilepsy: No Psychiatric Disorders: No Other Medical Diseases: No Hepatitis/Liver Disease: No Significant Family History: No Varicosities/Phlebitis: No Trauma/Violence : No Thyroid Dysfunction: No Medical History Comments: Hosptalized for childbirth INFECTIOUS HISTORY Gonorrhea: No Genital Herpes: No Chlamydia: No Tuberculosis: No Syphilis: No Hepatitis: No HIV/AIDS Exposure: No Rash or Viral Illness: No HPV: No PHYSICAL EXAM General: Normal HEENT: Normal Neurologic: Normal Thyroid: Normal Heart: Normal Lungs: Normal Breast: Deferred Back: Normal Abdomen: Normal Genitourinary Exam: Normal Extremities: Normal DTRs: Normal Pelvic Type: Adequate Vital Signs: Reviewed FETUS A EGA: 40.1 Admit Comment: Term, Rh neg PLANS FOR LABOR AND DELIVERY Labor and Delivery: None Pain Management: Epidural Feeding Preference: Both Benefit of Breast Feed Discussed: Yes Circumcision: Yes INFORMED CONSENT Signature: with User ID: [email or web address]
--- NOTE | 2016-11-03 23:41 | Non Stress Test Report ---
Non Stress Test Datetime Report Generated by CPN: 11/03/2016 23:40 DEMOGRAPHIC Test Number: 2 EGA NST: 40.0 INDICATION Indication for Study: Ordered by Provider MONITORING Monitor Explained: Monitor Explained; Test Explained; Patient Verbalized Understanding Time on Monitor: 10/27/2016 21:02 Time off Monitor: 10/27/2016 21:36 NST Duration: 34 NST INTERVENTIONS NST Interventions: PO Hydration; Reposition Patient Physician Notified NST: Dr. Sultana BABY A: [id number] BABY A Movement : Present Contraction Frequency : occasional Accelerations : 15X15 Decelerations : None Variability : Moderate 6-25bpm NST Review: Meets Criteria for Reactive NST NST Review and Verified By : CAM Hughes Results: Reactive NST REPORT Report Trigger: Send Report
== END 2016-10-30 13:06 | disposition home or self-care (01) | DRG 775 ==
LOC: LC 01:43 → LR 02:16 → 2S 09:20
PROVIDERS: ADMIT Obstetrics & Gynecology; ATTEND Obstetrics & Gynecology
PROC: 10E0XZZ Delivery of Products of Conception, External Approach (ICD-10-PCS; principal; 2016-10-28)
PROC: 0UQMXZZ Repair Vulva, External Approach (ICD-10-PCS; 2016-10-28)
PROC: 4A1HXCZ Monitoring of Products of Conception, Cardiac Rate, External Approach (ICD-10-PCS; 2016-10-28)
PROC: 3E0234Z Introduction of Serum, Toxoid and Vaccine into Muscle, Percutaneous Approach (ICD-10-PCS; 2016-10-29)
DX: O77.0 Labor and delivery complicated by meconium in amniotic fluid (principal); D62 Acute posthemorrhagic anemia; O26.893 Other specified pregnancy related conditions, third trimester; O71.82 Other specified trauma to perineum and vulva; O99.02 Anemia complicating childbirth; Z3A.40 40 weeks gestation of pregnancy; Z67.41 Type O blood, Rh negative; Z37.0 Single live birth
CPT/HCPCS: 36415; 85025; 85027; 85461; 86592; 86850; 86900; 86901; 90715; J2590; J2790; J3490

== ENCOUNTER 2016-11-09 19:47 | Emergency (ER) | payer OTHER ==
[2016-11-09 22:02] LABS: ABSOLUTE BASOPHILS # (AUTO) 0.1 10^3/uL (0.0-0.2); ABSOLUTE EOSINOPHILS # (AUTO) 0.1 10^3/uL (0.0-0.6); ABSOLUTE LYMPHOCYTES (AUTO) 1.3 10^3/uL (0.5-4.7); ABSOLUTE MONOCYTES (AUTO) 0.3 10^3/uL (0.1-1.4); BASOPHILS % (AUTO) 0.6 % (0-2); EOSINOPHILS % (AUTO) 0.8 % (0-6); HEMOGLOBIN 12.4 g/dL (12.0-15.5); HGB HCT DIFFERENCE 1.2; LYMPHOCYTES % (AUTO) 14.5 % (13-45); MEAN CORPUSCULAR HEMOGLOBIN 29.1 pg (27.0-33.4); MEAN CORPUSCULAR HGB CONC 34.5 g/dL (32.0-36.0); MEAN CORPUSCULAR VOLUME 84 fl (80-97); MONOCYTES % (AUTO) 3.7 % (3-13); RED BLOOD COUNT 4.27 10^6/uL (3.72-5.28); RED CELL DISTRIBUTION WIDTH 13.9 % (11.5-14.0); SEGMENTED NEUTROPHILS % (AUTO) 80.4 % (42-78); WHITE BLOOD COUNT 8.8 10^3/uL (4.0-10.5)
[2016-11-09 22:20] LABS: ANION GAP 14 (5-19); BLOOD UREA NITROGEN 9 mg/dL (7-20); CALCIUM 9.1 mg/dL (8.4-10.2); CARBON DIOXIDE 20 mmol/L (22-30); CHLORIDE 103 mmol/L (98-107); CREATININE RESULT 0.74 mg/dL (0.52-1.25); GLUCOSE 90 mg/dL (75-110); POTASSIUM 3.7 mmol/L (3.6-5.0); SODIUM 136.8 mmol/L (137-145)
--- NOTE | 2016-11-09 22:35 | ER Document Report ---
ED General - General Chief Complaint: Post Problem Stated Complaint: FEVER Time Seen by Provider: 11/09/16 21:41 Notes: Patient is a 21-year-old female without past medical history, 2 weeks after an uncomplicated vaginal delivery who presents with 3 days of fever. Denies any additional symptoms beyond the fever. Does note that when she has the fever she feels "terribly" with diffuse body aching but this resolves after either taking Tylenol or ibuprofen. She denies any abdominal pain, dysuria, headache, neck pain, cough, sputum production, shortness of breath, sore throat, vomiting or diarrhea. No known sick contacts. She has not contacted her SUPERVISOR WOOD CREW regarding today's concerns. TRAVEL OUTSIDE OF THE [place] IN LAST 30 DAYS: No - Related Data Allergies/Adverse Reactions: No Known Allergies Allergy (Verified 11/09/16 21:58) Past Medical History - General Information source: Patient - Social History Smoking Status: Never Smoker Frequency of alcohol use: None Drug Abuse: None Lives with: Spouse/Significant other Family History: Reviewed & Not Pertinent Renal/ Medical History: Denies: Hx Peritoneal Dialysis Surgical Hx: Negative Review of Systems - Review of Systems Notes: Constitutional: Positive for fever. HENT: Negative for sore throat. Eyes: Negative for visual changes. Cardiovascular: Negative for chest pain. Respiratory: Negative for shortness of breath. Gastrointestinal: Negative for abdominal pain, vomiting or diarrhea. Genitourinary: Negative for dysuria. Musculoskeletal: Negative for back pain. Skin: Negative for rash. Neurological: Negative for headaches, weakness or numbness. 10 point ROS negative except as marked above and in HPI. Physical Exam - Vital signs Vitals: Temp Pulse Resp BP Pulse Ox 100.6 F H 88 20 120/63 96 11/09/16 20:00 11/09/16 20:00 11/09/16 20:00 11/09/16 20:00 11/09/16 20:00 Interpretation: Febrile Notes: PHYSICAL EXAMINATION: GENERAL: Well-appearing, well-nourished and in no acute distress. HEAD: Atraumatic, normocephalic. EYES: Pupils equal round and reactive to light, extraocular movements intact, sclera anicteric, conjunctiva are normal. ENT: nares patent, oropharynx clear without exudates. Moist mucous membranes. NECK: Normal range of motion, supple without lymphadenopathy LUNGS: Breath sounds clear to auscultation bilaterally and equal. No wheezes rales or rhonchi. HEART: Regular rate and rhythm without murmurs ABDOMEN: Soft, nontender, normoactive bowel sounds. No guarding, no rebound. No masses appreciated. Pelvic: There is a malodorous yellow, roy discharge from the cervical os. No cervical motion tenderness, adnexal tenderness or suprapubic tenderness on palpation. EXTREMITIES: Normal range of motion, no pitting or edema. No cyanosis. NEUROLOGICAL: No focal neurological deficits. Moves all extremities spontaneously and on command. PSYCH: Normal mood, normal affect. SKIN: Warm, Dry, normal turgor, no rashes or lesions noted. Course - Re-evaluation Re-evalutation: 11/09/16 22:34 Patient presents with a fever up to 103.2 at home 2 weeks post- from a vaginal delivery. No focal symptoms. Otherwise very well in appearance. No vaginal discharge, dysuria, respitory symptoms, headache or neck pain. No WBC elevation. Patient has no focal abdominal tenderness on exam to suggest an acute appendicitis, inflammatory disease, or acute endometritis. Will pursue a pelvic exam to evaluate for possible cervical discharge the patient is not noting as well as to view her area of repair from a tear during delivery 11/09/16 22:44 The area of the small vaginal tear appears very well without any evidence of infection. Patient does have foul-smelling lochia, roy green purulent expression from the cervix. This is consistent with acute endometritis. She's been given a dose of ceftriaxone 250 mg IM, and will be started on doxycycline and metronidazole as an outpatient.At this time will discharge with return precautions and follow-up recommendations. Verbal discharge instructions given a the bedside and opportunity for questions given. Medication warnings reviewed. Patient is in agreement with this plan and has verbalized understanding of return precautions and the need for primary care follow-up in the next 24-72 hours. - Vital Signs Vital signs: Temp Pulse Resp BP Pulse Ox 98.3 F 87 87 H 117/65 99 11/09/16 23:12 11/09/16 23:12 11/09/16 23:12 11/09/16 23:12 11/09/16 23:12 - Laboratory Result Diagrams: 11/09/16 21:51 11/09/16 21:51 Laboratory results interpreted by me: 11/09/16 11/09/16 21:51 21:51 Plt Count 147 L Seg Neutrophils % 80.4 H Sodium 136.8 L Carbon Dioxide 20 L Discharge - Discharge Clinical Impression: Endometritis Condition: Good Disposition: HOME, SELF-CARE Additional Instructions: Your symptoms and exam are consistent with an infection inside your uterus resulting from your recent delivery. Please take all of the antibiotics that you been prescribed as directed and complete the entire course even if you are feeling better. Return if you develop persistent vomiting, inability to tolerate fluids or take your medications, worsening discomfort, become lethargic , or have any other symptoms that are worrisome to you. Please contact your OB/ FEED RESEARCH TECHNICIAN and schedule a close outpatient follow-up early next week. Prescriptions: Doxycycline Hyclate 100 mg PO BID #28 capsule Metronidazole 500 mg PO BID #28 tablet
[2016-11-09] MEDS ORDERED: CEFTRIAXONE INJ 250 MG VIAL IM ONE (22:44)
[2016-11-09] MEDS ORDERED: LIDOCAINE 1% INJ-PF (10 MG/ML) 30 ML SDV INFIL ONE (22:44)
[2016-11-09] MEDS ORDERED: METRONIDAZOLE 500 MG TABLET PO ONE (22:44)
[2016-11-09] MEDS ORDERED: DOXYCYCLINE HYCLATE 100 MG TABLET PO ONE (22:44)
[2016-11-09 23:13] VITALS: BP 117/65
== END 2016-11-09 23:12 | disposition home or self-care (01) ==
LOC: ER 19:47
DX: O86.12 Endometritis following delivery (principal); N71.9 Inflammatory disease of uterus, unspecified; R50.9 Fever, unspecified
CPT/HCPCS: 36415; 80048; 85025; 87040; 87210; 99283

== ENCOUNTER → 2017-02-27 | Outpatient (CLI) | payer OTHER ==
--- NOTE | 2017-02-27 10:47 | XCELERA REPORT ---
[address] [address] Lower Extremity Venous Evaluation Name: ZIGGY NUNEZ Age: 21 yrs Gender: Female : 1995 Patient Status: Outpatient Patient Location: Study Date: 02/27/2017 07:56 AM Procedure: Color flow and duplex imaging of the veins of the right lower extremity as well as the left Common Femoral vein. Reason For Study: RIGHT THIGH PAIN Ordering Physician: JAYNE WELSH Performed By: Landon Madrigal Right Sided Venous Evaluation Normal vessel filling wall to wall, compression and augmentation as well as Colour flow down to the infrageniculate veins. Left Sided Venous Evaluation The left common femoral vein is fully compressible. Spontaneous and phasic flow is present in the left common femoral vein. Interpretation Summary No duplex evidence of DVT or obstruction in the right lower extremity nor in the left Common Femoral vein. : JAYNE WELSH > Joe Lares
== END ==
LOC: SP 07:44
PROVIDERS: ATTEND Internal Medicine
DX: M79.651 Pain in right thigh (principal)
CPT/HCPCS: 93971

== ENCOUNTER → 2018-04-25 | Outpatient (CLI) | payer SELFPAY | LOC: OD 08:08 | PROVIDERS: ATTEND Obstetrics & Gynecology Reproductive Endocrinology | DX: N97.9 Female infertility, unspecified (principal) | CPT/HCPCS: 36415; 84144 ==

== ENCOUNTER → 2018-05-01 | Outpatient (CLI) | payer SELFPAY | LOC: OD 09:01 | PROVIDERS: ATTEND Obstetrics & Gynecology Reproductive Endocrinology | DX: N97.9 Female infertility, unspecified (principal) | CPT/HCPCS: 36415; 84144 ==

== ENCOUNTER → 2018-05-05 | Outpatient (CLI) | payer SELFPAY | LOC: OD 07:53 | PROVIDERS: ATTEND Obstetrics & Gynecology Reproductive Endocrinology | DX: N97.9 Female infertility, unspecified (principal); Z32.00 Encounter for pregnancy test, result unknown | CPT/HCPCS: 36415; 84144; 84702 ==

== ENCOUNTER → 2018-05-07 | Outpatient (CLI) | payer SELFPAY | LOC: OD 08:55 | PROVIDERS: ATTEND Obstetrics & Gynecology Reproductive Endocrinology | DX: O09.00 Supervision of pregnancy with history of infertility, unspecified trimester (principal) | CPT/HCPCS: 36415; 84144; 84702 ==

== ENCOUNTER → 2018-06-15 | Outpatient (CLI) | payer SELFPAY | LOC: OD 09:29 | PROVIDERS: ATTEND Obstetrics & Gynecology Reproductive Endocrinology | DX: O09.819 Supervision of pregnancy resulting from assisted reproductive technology, unspecified trimester (principal); N97.9 Female infertility, unspecified | CPT/HCPCS: 36415; 84144 ==